=== PATIENT | female | born 1940 | race Caucasian/White ===

== ENCOUNTER → 2020-05-15 | Outpatient (CLI) | payer MEDICARE | LOC: M.ULTRA 09:54 | PROVIDERS: ATTEND Family Medicine | DX: I10 Essential (primary) hypertension (principal) ==

== ENCOUNTER → 2020-05-20 | Outpatient (CLI) | payer MEDICARE ==
--- NOTE | 2020-05-31 22:09 | SLEEP ---
[address] [address] SLEEP STUDY REPORT Name: MATEUSZ BLOOM Chandrika Room: [facility]#: [id number] Admission: 05/20/20 Attend Phys: Dre Lopez DO Discharge: Date of : 40 Report #: [id number] THIS REPORT FOR: cc: Brianda Vera Maggie M. DO ~ Troy Parra MD This study has been reviewed in its entirety by a board certified sleep specialist DATE OF SERVICE: 05/20/2020 SLEEP STUDY INDICATION FOR SLEEP STUDY: Hypertension with daytime sleepiness. INTERPRETATION: Total duration of the study is 366 minutes out of which she was asleep for 283 minutes with an overall sleep efficiency of 77.4%. Sleep onset initially occurred around 20 minutes after lying down in bed and REM onset was delayed to 270 minutes after sleep onset. N1 sleep duration was 9%, N2 duration was 68%, N3 duration was 14% and REM duration was 9%. We did record multiple sleep related respiratory events. These included 6 central apneas, 64 obstructive apneas, 13 mixed apneas, 25 respiratory effort related arousals. Overall, apnea-hypopnea index was 18.7 with a respiratory disturbance index of 24.0. Body position data indicates the patient was observed asleep in the supine position for 100 minutes. The rest of the time, the patient was in other positions. Events do appear to be more common when the patient is lying supine. Mean heart rate was 73. Periodic limb movement index is elevated to 39, however most limb movements were not associated with arousals. Periodic limb movement index with arousals is 8.9. There is sleep fragmentation observed with arousal index elevated to 33.1. We also did record multiple desaturations. Overall, the patient did spend 6.3 minutes below an O2 saturation of 90%; however, only 2.1 minutes were spent below an O2 saturation of 88%. IMPRESSION: 1. Obstructive sleep apnea with an apnea-hypopnea index of 18.7 with mild nocturnal hypoxemia as described above. Events do appear to be more common when the patient is lying supine. 2. There is periodic limb movement disorder noted with a periodic limb movement index of 38.6. Most limb movements are not associated with arousals. Periodic limb movement index with arousals is 8.9. [place] [address] SLEEP STUDY REPORT Name: MATEUSZ BLOOM Room: [facility]#: [id number] Admission: 05/20/20 Attend Phys: Dre Lopez DO Discharge: Date of : 40 Report #: [id number] RECOMMENDATIONS: 1. Recommend proceeding to a repeat sleep study for positive airway pressure titration. 2. If clinically appropriate, then some weight loss can also be considered. 3. Recommend avoiding driving or other activities requiring vigilance if drowsy. This entire sleep study was reviewed by board certified sleep physician. <ELECTRONICALLY SIGNED> By: Troy Parra MD 05/31/20 2209 2008 [id number] Parra MD /nt
== END ==
LOC: M.SLEEPLAB 21:00
PROVIDERS: ATTEND Family Medicine
DX: G47.33 Obstructive sleep apnea (adult) (pediatric) (principal); I10 Essential (primary) hypertension; Z86.69 Personal history of other diseases of the nervous system and sense organs